=== PATIENT | male | born 1960 | race Caucasian/White ===

== ENCOUNTER 2021-03-24 09:37 | Inpatient (IN) ==
[2021-03-24 10:16] LABS: Hematocrit 18.5 % (37.5-50.1); Immature Platelets 1.8 % (1.1-6.1); Mean Corpuscular HGB Conc 31.4 g/dL (31.6-35.5); Mean Corpuscular Hemoglobin 27.2 pg (28.0-33.3); Mean Corpuscular Volume 86.9 fL (83.0-100.0); Mean Platelet Volume 10.8 fL (9.4-12.4); Red Blood Count 2.13 M/mcL (4.19-5.50); Red Cell Distribution Width 16.6 % (11.5-14.5); White Blood Count 4.4 K/mcL (4.3-11.1)
[2021-03-24 10:22] LABS: INR 1.2; Prothrombin Time 13.5 Seconds (9.4-12.1)
[2021-03-24 10:25] LABS: Activated Partial Thrombo Time 33.9 Seconds (26.0-36.0)
[2021-03-24 10:57] LABS: Influenza A PCR Negative (Negative); Influenza B PCR Negative (Negative); Resp. Syncytial Virus PCR Negative (Negative)
[2021-03-24 10:59] LABS: SARS-CoV-2 by PCR (In House) Negative (Negative)
[2021-03-24 11:10] LABS: Platelet Count 62 K/mcL (140-400)
[2021-03-24 11:12] LABS: Hemoglobin 5.8 g/dL (12.9-16.9)
[2021-03-24] MEDS ORDERED: Cefepime HCl 1,000 MG in 0.9 % Sodium Chloride Mini Bag 100 ML IVPB STA (11:32)
[2021-03-24 11:52] LABS: Alanine Aminotransferase 16 Units/L (7-52); Albumin 2.3 g/dL (3.5-5.7); Albumin/Globulin Ratio 0.6 (1.1-2.2); Alkaline Phosphatase 79 Units/L (34-104); Aspartate Amino Transferase 21 Units/L (13-39); Bilirubin,Total 0.5 mg/dL (0.3-1.0); Blood Urea Nitrogen > 130 mg/dL (8-23); Calcium 7.6 mg/dL (8.6-10.3); Carbon Dioxide 14 mEq/L (23-29); Chloride 106 mEq/L (98-107); Globulin 4.1 g/dL (2.4-3.5); Glucose 112 mg/dL (70-105); Potassium 5.1 mEq/L (3.5-5.1); Sodium 132 mEq/L (136-145); Total Protein 6.4 g/dL (6.4-8.9); eGFR For African Americans 4 (> 60); eGFR For Non-African Americans 4 (> 60)
[2021-03-24 11:59] LABS: Troponin I 0.33 ng/mL (< 0.04)
[2021-03-24 12:02] LABS: Immature Reticulocyte % 12.6 % (11.0-38.0); Retculocyte # 0.04 M/mcL (0.05-0.10); Reticulocyte % 2.1 % (1.6-2.8)
[2021-03-24 12:29] LABS: Monocytes # 0.1 K/mcL (0.0-1.3); Neutrophils # 3.3 K/mcL (1.6-8.9); Platelet Estimate Decreased (Normal); Reactive Lymphocytes Present (Not Present); Toxic Granulation Present (Not Present)
[2021-03-24 12:30] LABS: Anisocytosis 1+ (Not Present)
[2021-03-24] MEDS ORDERED: 0.9 % Sodium Chloride 250 ML IVC PRN (13:31)
[2021-03-24] MEDS ORDERED: *HR* Heparin 5,000 UNIT/ML VIAL ONE (13:58)
[2021-03-24] MEDS ORDERED: 0.9 % Sodium Chloride 1,000 ML PRIME SCH (14:00)
[2021-03-24 16:02] LABS: Hepatitis B Surface Antigen Nonreactive (Nonreactive)
[2021-03-24 16:03] LABS: Folate 8.3 ng/mL (3.0-16.0)
[2021-03-24 16:08] LABS: Hepatitis B Surface Antibody < 3.10 mIU/mL
[2021-03-24] MEDS ORDERED: Naloxone 0.4 MG/ML INJ IVP PRN (17:20)
[2021-03-24] MEDS ORDERED: Albumin 25% 25gram/100mL 25 GM/100 ML IV.SOLN ONE (17:24)
[2021-03-24] MEDS ORDERED: Albumin 25% 25gram/100mL 25 GM/100 ML IV.SOLN IVPB STA (17:34)
[2021-03-24] MEDS ORDERED: Perflutren Lipid Microsphere 1.3 ML in 0.9 % Sodium Chloride 8.7 ML IVP PRN (18:11)
[2021-03-24 18:30] LABS: Hepatitis B Surface Antigen Nonreactive (Nonreactive)
[2021-03-24 18:43] LABS: C-Reactive Protein 65 mg/L (Less than 10); Iron 58 mcg/dL (65-175)
[2021-03-24 18:52] LABS: Hepatitis C Virus Antibody Nonreactive (Nonreactive)
[2021-03-24 18:59] LABS: Hepatitis B Core IgM Nonreactive (Nonreactive)
[2021-03-24 19:00] LABS: Hepatitis A Antibody IgM Nonreactive (Nonreactive)
[2021-03-24] MEDS ORDERED: Dextrose Gel 15 GM/37.5 ML TUBE PO PRN ×2 (20:14)
[2021-03-24] MEDS ORDERED: *HR* Dextrose 50 % in Water (Syg) 50 ML SYRINGE IVP PRN (20:14)
[2021-03-24] MEDS ORDERED: D5% in Water 1,000 ML IVC PRN (20:14)
[2021-03-24] MEDS: Budesonide/Formoterol 160/4.5 1 PUFF INH IH SCH (20:40)
[2021-03-24] MEDS: Ipratropium/Albuterol Neb 3 ML IH SCH ×2 (20:40→23:52)
[2021-03-24] MEDS ORDERED: Piperacillin/Tazobactam 3.375 GM in 0.9 % Sodium Chloride Mini Bag 100 ML IVPB SCH (21:00)
[2021-03-24] MEDS: Chlorhexidine Rinse 15 ML MOUTHWASH MM SCH (21:11)
[2021-03-24 21:25] LABS: Chol/HDL Ratio 6.5 (0-4.9)
[2021-03-24 21:37] LABS: Thyroid Stimulating Hormone 3.759 mcIU/mL (0.340-5.600)
[2021-03-24 22:30] LABS: Amphetamine Screen,Urine Negative ng/mL (Cutoff=1000); Barbiturate Screen,Urine Negative ng/mL (Cutoff=200); Benzodiazepines Screen,Urine Negative ng/mL (Cutoff=200); Cannabinoid Screen,Urine Negative ng/mL (Cutoff = 50); Cocaine Screen,Urine Negative ng/mL (Cutoff= 300); Opiate Screen,Urine Negative ng/mL (Cutoff=300); Phencyclidine Screen,Urine Negative ng/mL (Cutoff=25)
[2021-03-24 22:31] LABS: Amorphous Sediment,Urine Few per hpf (None-Few); Bacteria,Urine Few per hpf (None-Few); Bilirubin,Urine Negative (Negative); Blood,Urine Large (Negative); Clarity,Urine Turbid (Clear); Color,Urine Light-Orange (Yellow); Glucose,Urine (UA) 30 mg/dL (Normal); Ketones,Urine Negative (Negative); Leukocyte Esterase,Urine Negative (Negative); Nitrite,Urine Negative (Negative); PH,Urine 5.5 pH Units (5.0-8.0); Protein,Urine 100 mg/dL (Neg-Trace); RBC,Urine TNTC per hpf (0-3); Specific Gravity,Urine 1.013 (1.010-1.025); Urobilinogen,Urine Normal (Normal)
[2021-03-24 22:37] LABS: Estimated Average Glucose 123 mg/dl; Hemoglobin A1C 5.9 %
[2021-03-24] MEDS ORDERED: 0.9 % Sodium Chloride 250 ML ONE (22:47)
[2021-03-24 23:36] LABS: Complement C3 18 mg/dL (87-200)
[2021-03-25 00:19] LABS: Protein/Creatinine Ratio,Urine 2.59 mg/mg (0.00-0.20)
[2021-03-25] MEDS ORDERED: MethylPREDNISolone 40 MG/ML VIAL IVP ONE (01:21)
[2021-03-25] MEDS ORDERED: *HR* Metoprolol 5 MG/5 ML VIAL IVP ONE (01:34)
[2021-03-25] MEDS ORDERED: Furosemide 40 MG/4 ML VIAL IVP ONE (02:29)
[2021-03-25] MEDS ORDERED: Ipratropium/Albuterol Neb 3 ML IH PRN (02:30)
[2021-03-25] MEDS: Ipratropium/Albuterol Neb 3 ML IH SCH (02:48)
[2021-03-25 02:50] LABS: ABG Base Excess -5 mEq/L (-2 to 3); ABG HCO3 21 mEq/L (21-27); ABG Oxygen Saturation 90 % (95-98); ABG PCO2 47 mmHg (35-45); ABG PH 7.27 pH Units (7.32-7.45); ABG PO2 67 mmHg (85-104); ABG TCO2 23 mEq/L (20-26); Blood Gas Pressure Support 4 cm H2O
[2021-03-25 03:51] LABS: Adenovirus Not Detected (Not Detect); Bordetella Pertussis Not Detected (Not Detect); Chlamydophila pneumoniae Not Detected (Not Detect); Coronavirus 229E Not Detected (Not Detect); Coronavirus HKU1 Not Detected (Not Detect); Coronavirus NL63 Not Detected (Not Detect); Coronavirus OC43 Not Detected (Not Detect); Human Metapneumovirus Not Detected (Not Detect); Human Rhinovirus/Enterovirus Not Detected (Not Detect); Influenza A Subtype 2009 H1 Not Detected (Not Detect); Influenza B Not Detected (Not Detect); Mycoplasma pneumoniae Not Detected (Not Detect); Parainfluenza Virus 1 Not Detected (Not Detect); Parainfluenza Virus 2 Not Detected (Not Detect); Parainfluenza Virus 3 Not Detected (Not Detect); Parainfluenza Virus 4 Not Detected (Not Detect); Respiratory Syncytial Virus Not Detected (Not Detect); SARS-CoV-2 Not Detected (Not Detect)
[2021-03-25 04:37] LABS: Hematocrit 20.6 % (37.5-50.1); Hemoglobin 6.6 g/dL (12.9-16.9); Mean Corpuscular Volume 87.2 fL (83.0-100.0); Red Cell Distribution Width 16.3 % (11.5-14.5)
[2021-03-25 04:39] LABS: Basophils % 0.3 %; Hematocrit 20.4 % (37.5-50.1); Immature Platelets 3.3 % (1.1-6.1); Lymphocytes # 0.6 K/mcL (0.6-4.6); Lymphocytes % 8.5 %; Mean Corpuscular HGB Conc 32.4 g/dL (31.6-35.5); Mean Corpuscular Hemoglobin 28.2 pg (28.0-33.3); Mean Platelet Volume 11.8 fL (9.4-12.4); Monocytes # 0.2 K/mcL (0.0-1.3); Monocytes % 2.3 %; Neutrophils # 6.2 K/mcL (1.6-8.9); Platelet Count 51 K/mcL (140-400); Red Blood Count 2.34 M/mcL (4.19-5.50); Segmented Neutrophils % 87.9 %
[2021-03-25 04:57] LABS: Magnesium 2.1 mg/dL (1.6-2.6); Phosphorous 10.4 mg/dL (2.7-4.5)
[2021-03-25 04:59] LABS: Albumin 2.3 g/dL (3.5-5.7); Albumin/Globulin Ratio 0.7 (1.1-2.2); Bilirubin,Total 0.7 mg/dL (0.3-1.0); Calcium 7.6 mg/dL (8.6-10.3); Globulin 3.5 g/dL (2.4-3.5); Potassium 4.9 mEq/L (3.5-5.1); Total Protein 5.8 g/dL (6.4-8.9)
[2021-03-25] MEDS: Levalbuterol Neb 1.25 MG/3 ML IH SCH ×6 (06:24→23:06)
[2021-03-25] MEDS ORDERED: 0.9 % Sodium Chloride 250 ML IVC PRN (06:53)
[2021-03-25] MEDS: Budesonide/Formoterol 160/4.5 1 PUFF INH IH SCH ×2 (07:57→19:31)
[2021-03-25] MEDS ORDERED: Piperacillin/Tazobactam 3.375 GM in 0.9 % Sodium Chloride Mini Bag 100 ML IVPB SCH (08:00)
[2021-03-25 08:23] LABS: Mean Platelet Volume 10.9 fL (9.4-12.4)
[2021-03-25 08:32] LABS: INR 1.5; Prothrombin Time 16.5 Seconds (9.4-12.1)
[2021-03-25 08:34] LABS: Activated Partial Thrombo Time 34.3 Seconds (26.0-36.0)
[2021-03-25] MEDS ORDERED: Albumin 25% 25gram/100mL 25 GM/100 ML IV.SOLN IVPB ONE (09:03)
[2021-03-25] MEDS ORDERED: methylPREDNISolone 125 MG/2 ML VIAL IVP STA (09:05)
[2021-03-25] MEDS ORDERED: *HR* Heparin 10,000 UNIT/10 ML VIAL IV PRN (11:57)
[2021-03-25] MEDS: Nicotine 14 MG PATCH.TD24 TD SCH (13:26)
[2021-03-25] MEDS: Nystatin POWDER 30 GM BOTTLE TP SCH ×2 (13:26→20:35)
[2021-03-25] MEDS: Chlorhexidine Rinse 15 ML MOUTHWASH MM SCH ×2 (13:26→20:35)
[2021-03-25] MEDS ORDERED: Perflutren Lipid Microsphere 1.3 ML in 0.9 % Sodium Chloride 8.7 ML IVP PRN (16:05)
[2021-03-25] MEDS ORDERED: methylPREDNISolone 125 MG/2 ML VIAL IVP ONE (16:28)
[2021-03-25] MEDS: Piperacillin/Tazobactam 3.375 GM in 0.9 % Sodium Chloride Mini Bag 100 ML IVPB SCH (16:32)
[2021-03-25 19:21] LABS: Acinetobacter baumannii by PCR Not Detected (Not Detect); Candida albicans by PCR Not Detected (Not Detect); Candida glabrata by PCR Not Detected (Not Detect); Candida krusei by PCR Not Detected (Not Detect); Candida parapsilosis by PCR Not Detected (Not Detect); Candida tropicalis by PCR Not Detected (Not Detect); Enterobacter cloacae Cmplx PCR Not Detected (Not Detect); Enterobacteriaceae by PCR Not Detected (Not Detect); Enterococcus by PCR Not Detected (Not Detect); Escherichia coli by PCR Not Detected (Not Detect); Klebsiella oxytoca by PCR Not Detected (Not Detect); Klebsiella pneumoniae by PCR Not Detected (Not Detect); Proteus by PCR Not Detected (Not Detect); Pseudomonas aeruginosa by PCR Not Detected (Not Detect); Serratia marcescens by PCR Not Detected (Not Detect); Staphylococcus aureus by PCR Not Detected (Not Detect); Staphylococcus by PCR Not Detected (Not Detect); Streptococcus agalactiae(B)PCR Not Detected (Not Detect); Streptococcus by PCR DETECTED (Not Detect); Streptococcus pneumoniae PCR Not Detected (Not Detect); Streptococcus pyogenes (A) PCR Not Detected (Not Detect)
[2021-03-25] MEDS: methylPREDNISolone 125 MG/2 ML VIAL IVP SCH (20:32)
[2021-03-25] MEDS: Saliva Stimulant 44.3ml BOTTLE PO PRN (20:32)
[2021-03-26] MEDS: methylPREDNISolone 125 MG/2 ML VIAL IVP SCH ×3 (00:38→15:05)
[2021-03-26] MEDS: Chloraseptic Spray 177 ML BOTTLE MM PRN ×2 (00:48→20:02)
[2021-03-26] MEDS: Piperacillin/Tazobactam 3.375 GM in 0.9 % Sodium Chloride Mini Bag 100 ML IVPB SCH ×2 (02:21→14:38)
[2021-03-26 02:55] LABS: Immature Granulocytes % 0.6 % (0-4)
[2021-03-26 02:57] LABS: Hematocrit 17.5 % (37.5-50.1); Immature Platelets 3.5 % (1.1-6.1); Lymphocytes # 0.4 K/mcL (0.6-4.6); Mean Corpuscular HGB Conc 33.7 g/dL (31.6-35.5); Mean Corpuscular Hemoglobin 29.5 pg (28.0-33.3); Mean Corpuscular Volume 87.5 fL (83.0-100.0); Mean Platelet Volume 10.7 fL (9.4-12.4); Monocytes # 0.1 K/mcL (0.0-1.3); Monocytes % 4.3 %; Neutrophils # 2.7 K/mcL (1.6-8.9); Platelet Count 44 K/mcL (140-400); Red Cell Distribution Width 16.6 % (11.5-14.5); Segmented Neutrophils % 83.1 %; White Blood Count 3.3 K/mcL (4.3-11.1)
[2021-03-26 02:59] LABS: Hemoglobin 5.9 g/dL (12.9-16.9)
[2021-03-26 03:07] LABS: INR 1.6; Prothrombin Time 17.7 Seconds (9.4-12.1)
[2021-03-26] MEDS: Levalbuterol Neb 1.25 MG/3 ML IH SCH ×6 (03:10→23:45)
[2021-03-26 03:12] LABS: Magnesium 2.1 mg/dL (1.6-2.6); Phosphorous 8.7 mg/dL (2.7-4.5); Potassium 4.5 mEq/L (3.5-5.1)
[2021-03-26] MEDS: Budesonide/Formoterol 160/4.5 1 PUFF INH IH SCH ×2 (08:01→20:08)
[2021-03-26] MEDS: Nystatin POWDER 30 GM BOTTLE TP SCH ×2 (08:49→20:12)
[2021-03-26] MEDS: Chlorhexidine Rinse 15 ML MOUTHWASH MM SCH ×2 (08:49→20:12)
[2021-03-26] MEDS: Nicotine 14 MG PATCH.TD24 TD SCH (08:49)
[2021-03-26 14:05] LABS: Hematocrit 19.4 % (37.5-50.1); Hemoglobin 6.4 g/dL (12.9-16.9)
[2021-03-26] MEDS ORDERED: Isovue-370 500 ML BOTTLE IVP ONE (14:15)
[2021-03-26] MEDS ORDERED: 0.9 % Sodium Chloride 250 ML ONE ×2 (18:12→22:59)
[2021-03-26] MEDS ORDERED: Vancomycin 1,250 MG/262.5 ML IV.SOLN IVPB ONE (19:00)
[2021-03-26] MEDS: Saliva Stimulant 44.3ml BOTTLE PO PRN ×2 (20:02→23:02)
[2021-03-26 23:51] LABS: Lambda Qnt Free Light Chains 473.02 mg/L (5.71-26.30)
[2021-03-27] MEDS: Piperacillin/Tazobactam 3.375 GM in 0.9 % Sodium Chloride Mini Bag 100 ML IVPB SCH ×2 (01:32→12:46)
[2021-03-27 03:07] LABS: Basophils % 0.2 %; Lymphocytes % 5.5 %; Monocytes % 4.3 %; Red Cell Distribution Width 16.2 % (11.5-14.5)
[2021-03-27 03:09] LABS: Hematocrit 20.8 % (37.5-50.1); Hemoglobin 6.9 g/dL (12.9-16.9); Immature Granulocytes % 1.8 % (0-4); Lymphocytes # 0.3 K/mcL (0.6-4.6); Mean Corpuscular HGB Conc 33.2 g/dL (31.6-35.5); Mean Corpuscular Hemoglobin 29.1 pg (28.0-33.3); Mean Corpuscular Volume 87.8 fL (83.0-100.0); Mean Platelet Volume 11.5 fL (9.4-12.4); Monocytes # 0.3 K/mcL (0.0-1.3); Neutrophils # 5.3 K/mcL (1.6-8.9); Nucleated Red Blood Cells 0.8 /100 WBC (0); Red Blood Count 2.37 M/mcL (4.19-5.50); Segmented Neutrophils % 88.2 %
[2021-03-27 03:14] LABS: Platelet Count 51 K/mcL (140-400)
[2021-03-27 03:22] LABS: INR 1.4; Prothrombin Time 15.1 Seconds (9.4-12.1)
[2021-03-27 03:24] LABS: Activated Partial Thrombo Time 27.9 Seconds (26.0-36.0)
[2021-03-27 03:25] LABS: Magnesium 2.5 mg/dL (1.6-2.6)
[2021-03-27 03:26] LABS: Albumin 2.6 g/dL (3.5-5.7); Albumin/Globulin Ratio 0.8 (1.1-2.2); Bilirubin,Total 0.8 mg/dL (0.3-1.0); Calcium 8.3 mg/dL (8.6-10.3); Globulin 3.4 g/dL (2.4-3.5); Potassium 4.5 mEq/L (3.5-5.1)
[2021-03-27] MEDS ORDERED: Acetaminophen 325 MG TABLET PO PRN ×2 (03:43→03:44)
[2021-03-27] MEDS ORDERED: *HR* OxyCODONE Immed Rel 5 MG TABLET PO ONE (03:45)
[2021-03-27] MEDS: Levalbuterol Neb 1.25 MG/3 ML IH SCH ×4 (03:56→15:41)
[2021-03-27] MEDS ORDERED: *HR* Metoprolol 5 MG/5 ML VIAL IVP ONE (04:33)
[2021-03-27 05:09] VITALS: PULSE 99
[2021-03-27] MEDS: Budesonide/Formoterol 160/4.5 1 PUFF INH IH SCH (07:41)
[2021-03-27 08:02] LABS: Kappa Qnt Free Light Chains 368.38 mg/L (3.30-19.40)
[2021-03-27] MEDS ORDERED: 0.9 % Sodium Chloride 250 ML IVC PRN (08:08)
[2021-03-27] MEDS ORDERED: Albumin 25% 25gram/100mL 25 GM/100 ML IV.SOLN IVPB PRN (08:08)
[2021-03-27] MEDS ORDERED: Multivit/Ca/Min/Fe/FA 1 TAB TABLET PO SCH (09:00)
[2021-03-27] MEDS ORDERED: Metoprolol XL (24 HR) Succ 25 MG TAB.ER.24H PO SCH ×2 (09:00)
[2021-03-27 09:16] LABS: Basophils % 0.2 %; Hematocrit 21.6 % (37.5-50.1); Immature Granulocytes % 2.2 % (0-4); Lymphocytes # 0.4 K/mcL (0.6-4.6); Lymphocytes % 6.8 %; Mean Corpuscular HGB Conc 32.4 g/dL (31.6-35.5); Mean Corpuscular Hemoglobin 29.2 pg (28.0-33.3); Mean Platelet Volume 11.9 fL (9.4-12.4); Monocytes # 0.2 K/mcL (0.0-1.3); Monocytes % 3.9 %; Neutrophils # 5.1 K/mcL (1.6-8.9); Nucleated Red Blood Cells 0.9 /100 WBC (0); Red Cell Distribution Width 16.3 % (11.5-14.5); Segmented Neutrophils % 86.9 %; White Blood Count 5.9 K/mcL (4.3-11.1)
[2021-03-27 09:27] LABS: Platelet Count 47 K/mcL (140-400)
[2021-03-27] MEDS: Saline Nasal Spray 44 ML BOTTLE NS SCH ×3 (10:07→16:16)
[2021-03-27] MEDS: Chlorhexidine Rinse 15 ML MOUTHWASH MM SCH (10:07)
[2021-03-27] MEDS: Artificial Tears SOLN 15 ML BOTTLE BOTH EYES SCH ×3 (10:07→16:16)
[2021-03-27] MEDS: Nystatin POWDER 30 GM BOTTLE TP SCH (10:07)
[2021-03-27] MEDS: Nicotine 14 MG PATCH.TD24 TD SCH (10:07)
[2021-03-27 10:58] LABS: ABG Base Excess -5 mEq/L (-2 to 3); ABG HCO3 20 mEq/L (21-27); ABG Oxygen Saturation 90 % (95-98); ABG PCO2 34 mmHg (35-45); ABG PH 7.37 pH Units (7.32-7.45); ABG PO2 60 mmHg (85-104); ABG TCO2 21 mEq/L (20-26)
[2021-03-27 15:55] VITALS: BP 148/83; TEMP 97.7; O2SAT 94
[2021-03-27] MEDS ORDERED: *HR* LORazepam 2 MG/ML VIAL IVP ONE (15:55)
[2021-03-27] MEDS ORDERED: *HR* Metoprolol 5 MG/5 ML VIAL IVP PRN (16:11)
[2021-03-29 13:46] LABS: % Iron Saturation 26 % (20-55); Transferrin 158 mg/dL (200-400)
[2021-03-30 09:04] LABS: Mycoplasma pneumoniae IgG 0.7 U/L (<=0.09)
[2021-03-30 09:20] LABS: DNase-B Antibody <86 U/mL (0-260)
[2021-03-30 09:42] LABS: ANA IgG by ELISA DETECTED (None Detected)
[2021-03-30 09:43] LABS: Ribonucleic Protein IgG-Sm/RNP 3 Units (0-19); SSA 52 (Anti-RO) Antibody 2 AU/mL (0-40); SSA 60 (Anti-RO) Antibody 0 AU/mL (0-40)
[2021-03-30] MEDS ORDERED: methylPREDNISolone 125 MG/2 ML VIAL IVP SCH (12:00)
[2021-03-30 14:53] LABS: Histone Antibody, IgG 1.4 Units (0.0-0.9)
[2021-03-31 00:40] LABS: ANA HEp-2 IgG IFA DETECTED (<1:80); Anti Nuclear Ab Pattern SPECKLED
[2021-03-31 08:16] LABS: Alpha 2 Globulin (PEP) 0.38 g/dL (0.48-1.05); Beta Globulin (PEP) 0.68 g/dL (0.48-1.10)
[2021-03-31 10:18] LABS: ANCA IFA Pattern C-ANCA (None Detected); Serine Protease-3 Antibody 242 AU/mL (0-19)
[2021-03-31 10:31] LABS: IFE Reflexed IFE Done; Immunoglobulin A 259 mg/dL (68-408); Immunoglobulin G 2274 mg/dL (768-1632); Immunoglobulin M 315 mg/dL (35-263)
[2021-03-31 10:33] LABS: Anti Fibrillarin U3 RNP NEGATIVE (Negative); Anti PM Scl EIA NEGATIVE (Negative); Anti RNA Polymerase III 9 Units (0-19); Cytoplasmic Pattern SPECKLED
[2021-04-04 02:36] LABS: APTT (LE Anticoag) 58 sec (32-48); APTT (LE Anticoag) 65 sec (32-48); Diluted Russell Viper Venom 49 sec (33-44); Diluted Russell Viper Venom 55 sec (33-44); LE Coag APTT Mixing 49 sec (32-48); LE Coag APTT Mixing 51 sec (32-48); LE Dil. Russell Viper Mix 1:1 35 sec (33-44); LE Dil. Russell Viper Mix 1:1 38 sec (33-44); LE Hexagonal Phospholipid Neut POSITIVE (Negative); PT (LE-Anticoag) 18.3 sec (12.0-15.5); PT (LE-Anticoag) 18.8 sec (12.0-15.5); Thrombin Time 16.1 sec (14.7-19.5); Thrombin Time 16.8 sec (14.7-19.5)
== END 2021-03-27 18:40 | disposition short-term general hospital (02) | DRG 682 ==
LOC: EMEROOARM 09:37 → 2ANU 09:37 → 3NENU 18:09 → SUATTDRO 20:23
PROVIDERS: ADMIT Internal Medicine; ATTEND Student in an Organized Health Care Education/Training Program

== ENCOUNTER 2021-07-26 18:31 | Inpatient (IN) ==
[2021-07-26] MEDS ORDERED: Aspirin 81 MG TAB.CHEW PO ONE (19:34)
[2021-07-26 20:20] LABS: Basophils % 0.2 %; Mean Corpuscular Volume 103.2 fL (83.0-100.0); Monocytes % 5.1 %
[2021-07-26 20:22] LABS: Eosinophils % 0.1 %; Hematocrit 35.2 % (37.5-50.1); Immature Granulocytes % 1.2 % (0-4); Lymphocytes # 0.9 K/mcL (0.6-4.6); Lymphocytes % 8.2 %; Mean Corpuscular HGB Conc 31.3 g/dL (31.6-35.5); Mean Corpuscular Hemoglobin 32.3 pg (28.0-33.3); Monocytes # 0.6 K/mcL (0.0-1.3); Neutrophils # 9.4 K/mcL (1.6-8.9); Nucleated Red Blood Cells 0.5 /100 WBC (0); Red Blood Count 3.41 M/mcL (4.19-5.50); Segmented Neutrophils % 85.2 %
[2021-07-26 20:23] LABS: Albumin/Globulin Ratio 0.9 (1.1-2.2); Bilirubin,Direct 1.5 mg/dL (0.0-0.2); Bilirubin,Indirect 1.2 mg/dL (0.0-1.0); Bilirubin,Total 2.7 mg/dL (0.3-1.0); Calcium 8.9 mg/dL (8.6-10.3); Globulin 3.2 g/dL (2.4-3.5); Potassium 4.8 mEq/L (3.5-5.1); Total Protein 6.2 g/dL (6.4-8.9); Troponin I 0.06 ng/mL (< 0.04)
[2021-07-26 20:27] LABS: INR 1.6; Prothrombin Time 17.8 Seconds (9.4-12.1)
[2021-07-26 20:30] LABS: Activated Partial Thrombo Time 32.3 Seconds (26.0-36.0)
[2021-07-26] MEDS ORDERED: Furosemide 80 MG in 0.9 % Sodium Chloride 50 ML IVPB ONE (21:30)
[2021-07-26] MEDS: 0.9 % Sodium Chloride 1,000 ML IVC SCH (22:16)
[2021-07-27 01:43] LABS: Bacteria,Urine Few per hpf (None-Few); Bilirubin,Urine Negative (Negative); Blood,Urine Moderate (Negative); Clarity,Urine Clear (Clear); Color,Urine Light-Yellow (Yellow); Glucose,Urine (UA) Normal (Normal); Hyaline Casts,Urine Few per lpf (None Seen); Ketones,Urine Negative (Negative); Leukocyte Esterase,Urine Negative (Negative); Mucus,Urine Few per lpf (None-Few); Nitrite,Urine Negative (Negative); PH,Urine 5.5 pH Units (5.0-8.0); Protein,Urine Trace mg/dL (Neg-Trace); Specific Gravity,Urine 1.012 (1.010-1.025); Squamous Epithelial Cell,Urine Few per hpf (None-Few); Urobilinogen,Urine Normal (Normal); WBC,Urine 0-3 per hpf (0-3)
[2021-07-27 06:05] LABS: Basophils % 0.2 %; Eosinophils % 0.1 %; Hemoglobin 10.5 g/dL (12.9-16.9); Immature Granulocytes % 0.9 % (0-4); Lymphocytes # 0.9 K/mcL (0.6-4.6); Lymphocytes % 8.9 %; Mean Corpuscular HGB Conc 30.9 g/dL (31.6-35.5); Mean Corpuscular Volume 103.7 fL (83.0-100.0); Mean Platelet Volume 11.9 fL (9.4-12.4); Monocytes # 0.5 K/mcL (0.0-1.3); Monocytes % 4.9 %; Neutrophils # 8.4 K/mcL (1.6-8.9); Nucleated Red Blood Cells 0.2 /100 WBC (0); Platelet Count 144 K/mcL (140-400); Red Blood Count 3.28 M/mcL (4.19-5.50); Red Cell Distribution Width 17.4 % (11.5-14.5); White Blood Count 9.9 K/mcL (4.3-11.1)
[2021-07-27 06:27] LABS: Albumin 2.9 g/dL (3.5-5.7); Bilirubin,Total 2.8 mg/dL (0.3-1.0); Calcium 8.6 mg/dL (8.6-10.3); Potassium 4.4 mEq/L (3.5-5.1); Total Protein 5.9 g/dL (6.4-8.9)
[2021-07-27] MEDS: 0.9 % Sodium Chloride 1,000 ML IVC SCH ×2 (12:13→17:16)
[2021-07-27] MEDS ORDERED: Naloxone 0.4 MG/ML INJ IVP PRN (13:50)
[2021-07-27] MEDS: Apixaban 5 MG TABLET PO SCH (22:25)
[2021-07-28 06:00] LABS: Basophils % 0.1 %; Mean Platelet Volume 11.8 fL (9.4-12.4)
[2021-07-28 06:02] LABS: Hematocrit 34.1 % (37.5-50.1); Hemoglobin 10.4 g/dL (12.9-16.9); Immature Platelets 8.1 % (1.1-6.1); Lymphocytes # 0.9 K/mcL (0.6-4.6); Lymphocytes % 7.7 %; Mean Corpuscular HGB Conc 30.5 g/dL (31.6-35.5); Mean Corpuscular Hemoglobin 31.9 pg (28.0-33.3); Mean Corpuscular Volume 104.6 fL (83.0-100.0); Monocytes # 0.5 K/mcL (0.0-1.3); Monocytes % 4.2 %; Nucleated Red Blood Cells 0.7 /100 WBC (0); Platelet Count 149 K/mcL (140-400); Red Blood Count 3.26 M/mcL (4.19-5.50); Red Cell Distribution Width 17.4 % (11.5-14.5); White Blood Count 11.5 K/mcL (4.3-11.1)
[2021-07-28 06:04] LABS: INR 1.7; Prothrombin Time 19.4 Seconds (9.4-12.1)
[2021-07-28 06:09] LABS: Albumin 2.9 g/dL (3.5-5.7); Bilirubin,Direct 2.1 mg/dL (0.0-0.2); Bilirubin,Indirect 1.1 mg/dL (0.0-1.0); Bilirubin,Total 3.2 mg/dL (0.3-1.0); Calcium 8.8 mg/dL (8.6-10.3); Potassium 3.9 mEq/L (3.5-5.1); Total Protein 5.9 g/dL (6.4-8.9)
[2021-07-28 06:48] LABS: Anisocytosis 1+ (Not Present); Large Platelets Present (Not Present); Macrocytosis Present (Not Present); Platelet Estimate Normal (Normal)
[2021-07-28] MEDS: Furosemide 40 MG/4 ML VIAL IVP SCH (08:01)
[2021-07-28] MEDS: Apixaban 5 MG TABLET PO SCH ×2 (08:01→22:14)
[2021-07-28] MEDS: 0.9 % Sodium Chloride 1,000 ML IVC SCH (08:02)
[2021-07-28] MEDS ORDERED: hydrOXYzine pamoate 25 MG CAPSULE PO PRN (08:23)
[2021-07-28] MEDS ORDERED: *HR* Amiodarone 200 MG TABLET PO SCH (09:00)
[2021-07-28] MEDS ORDERED: clonazePAM 0.5 MG TABLET PO PRN (14:09)
[2021-07-29 04:49] VITALS: O2SAT 100
[2021-07-29 07:41] VITALS: BP 119/41; PULSE 74; TEMP 97.1
[2021-07-29] MEDS: Apixaban 5 MG TABLET PO SCH (08:16)
[2021-07-29] MEDS: Furosemide 40 MG/4 ML VIAL IVP SCH (08:16)
[2021-07-29] MEDS ORDERED: *HR* Amiodarone 200 MG TABLET PO SCH (09:00)
== END 2021-07-29 10:55 | disposition short-term general hospital (02) | DRG 441 ==
LOC: 2NENU 18:31 → EMEROOARM 18:31 → 2NENU 07-27 10:33 → SUATTDRO 07-27 14:36
PROVIDERS: ADMIT Student in an Organized Health Care Education/Training Program; ATTEND Internal Medicine